=== PATIENT | female | born 1990 | race Two or more races ===

== ENCOUNTER 2017-12-01 15:55 | Emergency (ER) | payer OTHER ==
[2017-12-01 16:19] VITALS: BP 131/71; PULSE 92; BMI 47.3
--- NOTE | 2017-12-01 17:54 | PDOC ---
History of Present Illness - General Chief Complaint: Respiratory Stated Complaint: CHILLS, HEADACHES Time Seen by Provider: 12/01/17 17:30 History Source: Patient Exam Limitations: No Limitations - History of Present Illness Initial Comments: 12/01/17 17:47 This is a 18-year-old female without significant past medical history presents emergency Department with 2 days of fevers, chills, body aches, headaches, sore throat. Patient states she's been around multiple friends were experiencing similar symptoms. She denies any nausea, vomiting, chest pain, shortness of breath, abdominal pain. PMD: Denies Past History - Past Medical History Allergies/Adverse Reactions: Allergies Allergy/AdvReac Type Severity Reaction Status Date / Time Penicillins Allergy Verified 12/01/17 16:10 Home Medications: Ambulatory Orders Oseltamivir Phosphate [Tamiflu -] 75 mg PO BID #10 capsule 12/01/17 COPD: No Other medical history: Patient denies medical hx - Suicide/Smoking/Psychosocial Hx Smoking History: Never smoked Hx Alcohol Use: Yes (occasionally) Drug/Substance Use Hx: No Review of Systems - Review of Systems Able to Perform ROS?: Yes Is the patient limited [place]ese proficient: No Constitutional: Yes: See HPI HEENTM: Yes: See HPI Respiratory: No: Symptoms reported Cardiac (ROS): No: Symptoms Reported ABD/GI: No: Symptoms Reported : No: Symptoms Reported Musculoskeletal: Yes: See HPI Integumentary: No: Symptoms Reported Neurological: No: Symptoms reported *Physical Exam - Vital Signs Last Vital Signs Temp Pulse Resp BP Pulse Ox 102.2 F H 92 H 16 131/71 100 12/01/17 16:08 12/01/17 16:08 12/01/17 16:08 12/01/17 16:08 12/01/17 16:08 - Physical Exam General Appearance: Yes: Appropriately Dressed. No: Apparent Distress HEENT: positive: Pharyngeal Erythema, Tonsillar Erythema, Rhinorrhea. negative : Tonsillar Exudate, Nasal Congestion, Sinus Tenderness Neck: positive: Trachea midline Respiratory/Chest: positive: Lungs Clear, Normal Breath Sounds. negative: Respiratory Distress, Accessory Muscle Use Cardiovascular: positive: Regular Rhythm, Regular Rate. negative: Murmur Gastrointestinal/Abdominal: positive: Normal Bowel Sounds, Soft. negative: Tender Musculoskeletal: positive: Normal Inspection. negative: CVA Tenderness Extremity: positive: Normal Inspection, Normal Range of Motion Integumentary: positive: Normal Color, Dry, Warm Neurologic: positive: Fully Oriented, Alert, Motor Strength 5/5 Medical Decision Making - Medical Decision Making 12/01/17 17:50 A/P: 27-year-old past medical history use laxatives 2 days. Pharyngeal erythema noted. No exudates noted. No sinus tenderness. No cervical lymphadenopathy present Cobblestoning noted on the soft palate Lungs clear to auscultation bilaterally. Cranial nerves II through XII intact 0.5 cm x 0.5 cm x 0.5 cm round raised brown nevermind noted to the palmar aspect of her right wrist. Diagnosis: Influenza I will empirically treat patient for influenza. I discussed the physical exam findings, ancillary test results and final diagnoses with the patient. I answered all of the patient's questions. The patient was satisfied with the care received and felt comfortable with the discharge plan and treatment plan. The patient will call Dr Condon within 96 hours to arrange follow-up and will return to the Emergency Department with any new, persistent or worsening symptoms. *DC/Admit/Observation/Transfer Diagnosis at time of Disposition: Influenza - Discharge Dispostion Disposition: HOME Condition at time of disposition: Stable Admit: No - Prescriptions Prescriptions: Oseltamivir Phosphate [Tamiflu -] 75 mg PO BID #10 capsule - Referrals Referrals: Sonny Condon MD [Staff Physician] - - Patient Instructions Additional Instructions: Rest, drink lots of fluids: Teas, water, soups, Pedialyte Saltwater gargles Steamy showers/seem to face break up mucus Avoid contact with others until fevers and cough resolved Lots of handwashing and good hygiene Continue [id number] medications for symptomatic relief Tylenol or Motrin for fever and pain Tamiflu 75mg twice a day for 5 days Followup with private physician in one to 2 days as needed Follow-up with Dr. Condon for referral for dermatology Return to emergency department for worsened symptoms, fevers, dehydration - Post Discharge Activity
[2017-12-01 18:01] VITALS: TEMP 100
== END 2017-12-01 18:02 | disposition home or self-care (01) ==
LOC: JERFT 15:55
DX: J11.1 Influenza due to unidentified influenza virus with other respiratory manifestations (principal)
CPT/HCPCS: 99281-25